=== PATIENT | female | born 1985 ===

== ENCOUNTER 2017-05-22 12:54 | Emergency (ER) | payer MEDICAID ==
[2017-05-22 13:17] VITALS: TEMP 97.3
[2017-05-22] MEDS ORDERED: Sodium Chloride 0.9% 1,000 ML IV ONE ×3 (13:41→15:17)
[2017-05-22 14:06] LABS: BASO % 0.3 % (0.0-2.0); EOS # 0.2 K/uL (0.0-0.7); EOS % 1.9 % (0.0-4.0); HEMOGLOBIN 12.5 g/dL (11.0-16.0); LYMPH # 1.6 K/uL (1.0-4.3); LYMPH % 13.2 % (20.0-40.0); MEAN CELL VOLUME 87.9 fL (81.0-99.0); MEAN CORPUSCULAR HEMOGLOBIN 30.2 pg (27.0-31.0); MEAN CORPUSCULAR HGB CONC 34.3 g/dL (33.0-37.0); MEAN PLATELET VOLUME 7.5 fL (7.2-11.7); MONO # 0.5 K/uL (0.0-0.8); MONO % 4.6 % (0.0-10.0); NEUT # 9.5 K/uL (1.8-7.0); RBC 4.13 Mil/uL (3.80-5.20); RED CELL DISTRIBUTION WIDTH 13.6 % (11.5-14.5); WHITE BLOOD COUNT 11.9 K/uL (4.8-10.8)
[2017-05-22 14:17] LABS: HCG,QUALITATIVE URINE NEGATIVE (NEGATIVE)
[2017-05-22 14:20] LABS: SQUAMOUS EPITHIAL 1 /hpf (0-5); URINE BACTERIA RARE (<OCC); URINE BILIRUBIN NEGATIVE (NEGATIVE); URINE BLOOD NEGATIVE (NEGATIVE); URINE CLARITY Hazy (Clear); URINE COLOR Yellow (YELLOW); URINE GLUCOSE (UA) NORMAL (Normal); URINE LEUKOCYTE ESTERASE TRACE Leu/uL (Negative); URINE PROTEIN 1+ mg/dL (NEGATIVE); URINE UROBILINOGEN NORMAL mg/dL (0.2-1.0)
[2017-05-22 14:31] LABS: BARBITURATES, UR NEGATIVE (NEGATIVE); OPIATES, UR NEGATIVE (NEGATIVE); PHENCYCLIDINE, UR NEGATIVE (NEGATIVE)
[2017-05-22 15:07] LABS: ALBUMIN 3.1 g/dL (3.5-5.0); ALT/SGPT 24 U/L (9-52); AST/SGOT 28 U/L (14-36); BLOOD UREA NITROGEN 15 mg/dL (7-17); CALCIUM 7.8 mg/dl (8.6-10.4); GFR AFRICAN-AMERICAN > 60; GFR NON-AFRICAN AMERICAN > 60
[2017-05-22] MEDS ORDERED: Naloxone 0.4 mg/ml Inj (Adult) IV STA (15:13)
[2017-05-22] MEDS ORDERED: Naloxone 0.4 mg/ml Inj (Adult) ONE (15:15)
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
[2017-05-22 15:37] LABS: BENZODIAZEPINES, UR POSITIVE (NEGATIVE)
[2017-05-22 17:02] LABS: ACETAMINOPHEN < 10.0 ug/mL (10.0-30.0); SALICYLATE < 1.0 mg/dL 1
[2017-05-22] MEDS ORDERED: Sodium Chloride 0.9% 1,000 ML IV STA (18:53)
[2017-05-22 21:14] VITALS: BP 124/79; PULSE 71; RESP 16; O2SAT 98
--- NOTE | 2017-05-23 07:13 | RAD ---
Chest x-ray single frontal view History: Opiate use. Comparison: None available. Findings: Mild venous congestion. Right hilar prominence. Mild patchy increased markings at the left lung base. Top normal heart size. Impression: Mild venous congestion. Right hilar prominence. Mild patchy increased markings at the left lung base.
--- NOTE | 2017-05-25 07:35 | CARD ---
APPROVED REPORT EKG Measurement Heart [id number] MD [id number] <Conclusion> Sinus bradycardia Otherwise normal ECG
== END 2017-05-22 21:34 | disposition home or self-care (01) ==
LOC: C.ER 12:54
DX: F11.10 Opioid abuse, uncomplicated (principal)
CPT/HCPCS: 71045; 80053; 80320; 80324; 80329; 80345; 80346; 80349; 80353; 80358; 80361; 81001; 83992; 84703; 85025; 96360; 99285; J7040

== ENCOUNTER 2018-05-30 21:12 | Emergency (ER) | payer MEDICAID ==
[2018-05-30] MEDS ORDERED: Naloxone 0.4 mg/ml Inj (Adult) IM ONE ×2 (21:27→23:04)
[2018-05-30] MEDS ORDERED: Naloxone HCl 2mg/2ml syr ONE (21:33)
[2018-05-30] MEDS ORDERED: Naloxone 0.4 mg/ml Inj (Adult) IVP ONE (21:34)
[2018-05-30] MEDS ORDERED: Sodium Chloride 0.9% 1,000 ML IV ONE (23:03)
[2018-05-30 23:13] LABS: BASO # 0.1 K/uL (0.0-0.2); BASO % 0.6 % (0.0-2.0); EOS # 0.6 K/uL (0.0-0.7); HEMOGLOBIN 13.2 g/dL (11.0-16.0); LYMPH # 5.8 K/uL (1.0-4.3); LYMPH % 59.4 % (20.0-40.0); MEAN CORPUSCULAR HEMOGLOBIN 30.4 pg (27.0-31.0); MEAN CORPUSCULAR HGB CONC 33.7 g/dL (33.0-37.0); MEAN PLATELET VOLUME 8.2 fL (7.2-11.7); MONO # 0.5 K/uL (0.0-0.8); MONO % 4.9 % (0.0-10.0); NEUT # 2.9 K/uL (1.8-7.0); NEUT % 29.1 % (50.0-75.0); NRBC % 0.1 % (0.0-2.0); PLATELET COUNT 351 K/uL (130-400); RBC 4.34 Mil/uL (3.80-5.20); RED CELL DISTRIBUTION WIDTH 13.8 % (11.5-14.5); WHITE BLOOD COUNT 9.8 K/uL (4.8-10.8)
[2018-05-30 23:16] LABS: MEAN CELL VOLUME 90.2 fL (81.0-99.0)
[2018-05-30 23:24] LABS: BLOOD UREA NITROGEN 14 mg/dL (7-17); CALCIUM 9.6 mg/dl (8.6-10.4); GFR NON-AFRICAN AMERICAN > 60
[2018-05-30 23:32] LABS: ALB/GLOB RATIO 1.6 (1.0-2.1); ALBUMIN 4.6 g/dL (3.5-5.0); ALT/SGPT 16 U/L (9-52); AST/SGOT 33 U/L (14-36)
[2018-05-30 23:48] LABS: ACETAMINOPHEN < 10.0 ug/mL (10.0-30.0); SALICYLATE < 1.0 mg/dL 1
--- NOTE | 2018-05-31 00:11 | C.PDOC ---
History Of Present Illness 32 year old female brought in via EMS for heroin abuse. Family called EMS due to intoxicated states at home. Patient seen earlier today at [place] [facility] for heroin abuse, work up was negative, patient refused narcan and left AMA. <Chapo Headley - Last Filed: 05/31/18 00:28> History Per: EMS, Family History/Exam Limitations: no limitations Onset/Duration Of Symptoms: Hrs Current Symptoms Are (Timing): Still Present Modifying Factor(s): Other (Heroin) <Chapo Headley - Last Filed: 05/31/18 00:28> <Kellie Christian - Last Filed: 05/31/18 15:23> Time Seen by Provider: 05/30/18 21:24 Chief Complaint (Nursing): Substance Abuse Past Medical History Reviewed: Historical Data, Nursing Documentation, Vital Signs Vital Signs: Last Vital Signs Temp 98.6 F 05/30/18 21:34 Pulse 88 05/30/18 23:24 Resp 20 05/30/18 23:24 BP 125/71 05/30/18 23:24 Pulse Ox 95 05/30/18 23:24 - Medical History PMH: Asthma, Bipolar Disorder, Depression Denies: Chronic Kidney Disease - [facility] Procedures (03/06/18) INTRODUCTION OF SERUM/TOX/VACCINE INTO MUSCLE, PER[facility] APPROACH (03/06/18) Family History: States: Unknown Family Hx - Social History Hx Alcohol Use: No Hx Substance Use: Yes (as per patient, prescription drugs) - Immunization History Hx Tetanus Toxoid Vaccination: No Hx Influenza Vaccination: No Hx Pneumococcal Vaccination: No <Chapo Headley - Last Filed: 05/31/18 00:28> Vital Signs: Last Vital Signs Temp 98.3 F 05/31/18 07:42 Pulse 60 05/31/18 07:42 Resp 15 05/31/18 07:42 BP 92/60 L 05/31/18 07:42 Pulse Ox 100 05/31/18 07:42 - [facility] Procedures (03/06/18) INTRODUCTION OF SERUM/TOX/VACCINE INTO MUSCLE, PERC APPROACH (03/06/18) <Kellie Christian - Last Filed: 05/31/18 15:23> Review Of Systems Review Of Systems: ROS cannot be obtained secondary to pt's inabilty to answer questions. <Chapo Headley - Last Filed: 05/31/18 00:28> Physical Exam - Physical Exam Appears: Other (Stuperous) Skin: Normal Color, Warm Head: Atraumatic, Normacephalic Eye(s): bilateral: Other (Pin point pupils) Oral Mucosa: Moist Neck: Normal, No Midline Cervical Tenderness, No Paracervical Tenderness, Supple Chest: Symmetrical, No Tenderness Cardiovascular: Rhythm Regular Respiratory: Normal Breath Sounds, No Rales, No Rhonchi, No Wheezing Gastrointestinal/Abdominal: Soft, No Tenderness, Other (Obese) Neurological/Psych: Other (No focal deficit) <Chapo Headley E - Last Filed: 05/31/18 00:28> ED Course And Treatment - Laboratory Results Result Diagrams: 05/30/18 23:09 05/30/18 23:09 Lab Results: Total Bilirubin 0.4 mg/dL (0.2-1.3) 05/30/18 23:09 AST 33 U/L (14-36) 05/30/18 23:09 ALT 16 U/L (9-52) 05/30/18 23:09 Alkaline Phosphatase 49 U/L (38-126) 05/30/18 23:09 Total Protein 7.5 g/dL (6.3-8.3) 05/30/18 23:09 Albumin 4.6 g/dL (3.5-5.0) 05/30/18 23:09 Globulin 2.9 gm/dL (2.2-3.9) 05/30/18 23:09 Albumin/Globulin Ratio 1.6 (1.0-2.1) 05/30/18 23:09 Lab Interpretation: Normal (asa/tylenol, alcohol neg) O2 Sat by Pulse Oximetry: 95 (Room air) Pulse Ox Interpretation: Normal Progress Note: 2129: Narcan IV given with emergence of bizarre behavior. 2229: Repeat narcan given when pupils became pinpoint again with bizarre behavior. 0: Patient became argumentative and agitated, geodon/ativan administered, placed in 4 point restraints. Plan is psych eval for decompensated bipolar disease or involuntary psych admission as she has high risk for accidental OD considering two OD evaluations in one day. Reevaluation Time: 00:09 Reassessment Condition: Improved <Chapo Headley - Last Filed: 05/31/18 00:28> - Laboratory Results Result Diagrams: 05/30/18 23:09 05/30/18 23:09 Lab Results: Total Bilirubin 0.4 mg/dL (0.2-1.3) 05/30/18 23:09 AST 33 U/L (14-36) 05/30/18 23:09 ALT 16 U/L (9-52) 05/30/18 23:09 Alkaline Phosphatase 49 U/L (38-126) 05/30/18 23:09 Total Protein 7.5 g/dL (6.3-8.3) 05/30/18 23:09 Albumin 4.6 g/dL (3.5-5.0) 05/30/18 23:09 Globulin 2.9 gm/dL (2.2-3.9) 05/30/18 23:09 Albumin/Globulin Ratio 1.6 (1.0-2.1) 05/30/18 23:09 Urine Color Yellow (YELLOW) 05/31/18 04:22 Urine Clarity Hazy (Clear) 05/31/18 04:22 Urine pH 6.0 (5.0-8.0) 05/31/18 04:22 Ur Specific Morrison 1.009 (1.003-1.030) 05/31/18 04:22 Urine Protein Negative mg/dL (NEGATIVE) 05/31/18 04:22 Urine Glucose (UA) Normal mg/dL (Normal) 05/31/18 04:22 Urine Ketones Negative mg/dL (NEGATIVE) 05/31/18 04:22 Urine Blood Trace (NEGATIVE) H 05/31/18 04:22 Urine Nitrate Negative (NEGATIVE) 05/31/18 04:22 Urine Bilirubin Negative (NEGATIVE) 05/31/18 04:22 Urine Urobilinogen Normal mg/dL (0.2-1.0) 05/31/18 04:22 Ur Leukocyte Esterase Neg Brandon/uL (Negative) 05/31/18 04:22 Urine WBC (Auto) 1 /hpf (0-5) 05/31/18 04:22 Urine RBC (Auto) < 1 /hpf (0-3) 05/31/18 04:22 Ur Squamous Epith Cells 5 /hpf (0-5) 05/31/18 04:22 Urine Bacteria Mod (<OCC) H 05/31/18 04:22 Urine HCG, Qual Negative (NEGATIVE) 05/31/18 04:22 Urine HCG, Qual Negative (NEGATIVE) 05/31/18 04:22 Progress Note: 8:15- Patient arousable to verbal stimuli, but unwilling to talk to me. Pupils pinpoint B/L. Vitals stable. Pending crisis evaluation. <Kellie Christian - Last Filed: 05/31/18 15:23> Medical Decision Making Medical Decision Making: pending Crisis/Psych eval for inpt psych voluntary/involuntary decompensated bipolar and 2 overdoses of narcotics in 1 day Sedated and restrained for safety pending sobriety to d/w Crisis 0100: signed over to overnight MD stable condition remains restrained for safety Crisis aware <Chapo Headley - Last Filed: 05/31/18 00:28> Disposition - Disposition Disposition Time: 01:00 <Chapo Headley - Last Filed: 05/31/18 00:28> Counseled Patient/Family Regarding: Studies Performed, Diagnosis, Need For Followup - Disposition Disposition Time: 15:25 <Kellie Christian - Last Filed: 05/31/18 15:23> - Disposition Referrals: [facility] [Outside] Disposition: HOME/ ROUTINE Condition: STABLE Instructions: Narcotic Overdose (DC) Forms: [employer] ([place]) Print Language: BENGALI - Clinical Impression Clinical Impression: Drug dependence, Opiate abuse, continuous, Bipolar 1 disorder - Scribe Statement The provider has reviewed the documentation as recorded by the Scribe Eriberto Major All medical record entries made by the Scribe were at my direction and personally dictated by me. I have reviewed the chart and agree that the record accurately reflects my personal performance of the history, physical exam, medical decision making, and the department course for this patient. I have also personally directed, reviewed, and agree with the discharge instructions and disposition. <Chapo Headley - Last Filed: 05/31/18 00:28> Physician Patient Turnover Patient Signed Over To: Prince Alvarenga Handoff Comments: pending sobriety and Crisis/Psych eval <Chapo Headley - Last Filed: 05/31/18 00:28>
[2018-05-31 04:32] LABS: SQUAMOUS EPITHIAL 5 /hpf (0-5); URINE BACTERIA MOD (<OCC); URINE BILIRUBIN NEGATIVE (NEGATIVE); URINE CLARITY Hazy (Clear); URINE COLOR Yellow (YELLOW); URINE GLUCOSE (UA) NORMAL (Normal); URINE LEUKOCYTE ESTERASE NEG Leu/uL (Negative); URINE PROTEIN NEGATIVE (NEGATIVE); URINE UROBILINOGEN NORMAL mg/dL (0.2-1.0)
[2018-05-31 04:36] LABS: HCG,QUALITATIVE URINE NEGATIVE (NEGATIVE)
[2018-05-31 04:43] LABS: BARBITURATES, UR NEGATIVE (NEGATIVE); PHENCYCLIDINE, UR NEGATIVE (NEGATIVE)
[2018-05-31 04:47] LABS: URINE BLOOD TRACE (NEGATIVE)
[2018-05-31 04:57] LABS: BASOPHIL 1 % (0-2); EOSINOPHIL 4 % (0-4); NEUTROPHIL 30 % (50-75); PLATELET ESTIMATE NORMAL (NORMAL); REACTIVE LYMPHOCYTES 20 % (0-0); TOTAL CELLS COUNTED 100
[2018-05-31 04:58] LABS: LYMPHOCYTE 41 % (20-40); MONOCYTE 4 % (0-10)
[2018-05-31 05:13] LABS: BENZODIAZEPINES, UR POSITIVE (NEGATIVE); OPIATES, UR POSITIVE (NEGATIVE)
[2018-05-31 10:48] VITALS: RESP 18
[2018-05-31 15:28] VITALS: BP 92/50; PULSE 69; TEMP 99.3; O2SAT 98
== END 2018-05-31 16:15 | disposition home or self-care (01) ==
LOC: C.ER 21:12
DX: F11.20 Opioid dependence, uncomplicated (principal); F31.9 Bipolar disorder, unspecified
CPT/HCPCS: 80053; 80320; 80324; 80329; 80345; 80346; 80349; 80353; 80358; 80361; 81001; 82948; 83735; 83992; 84100; 84703; 85025; 96372; 96374; 99285; J2060; J2310; J3486; J7030